=== PATIENT | female | born 1975 | race Caucasian/White ===

== ENCOUNTER 2018-06-24 14:00 | Emergency (ER) | payer OTHER ==
[2018-06-24] MEDS: IBUPROFEN 600 MG TAB PO (17:29)
== END 2018-06-24 19:50 | disposition home or self-care (01) ==
LOC: FTE 14:00
DX: S93.601A Unspecified sprain of right foot, initial encounter (principal); I10 Essential (primary) hypertension; W18.39XA Other fall on same level, initial encounter; Y92.9 Unspecified place or not applicable
CPT/HCPCS: 73610; 73610-RT; 73630; 99283-25